=== PATIENT | female | born 1945 | race Caucasian/White ===

== ENCOUNTER 2021-01-12 13:45 | Outpatient (REF) | payer OTHER, SELFPAY | END 2021-01-12 13:46 | disposition home or self-care (01) | LOC: HO.MANLNP 13:45 | PROVIDERS: PCP Internal Medicine; Visit Provider Internal Medicine | DX: R30.9 Painful micturition, unspecified (principal) | CPT/HCPCS: 87086; 87088; 87186 ==

== ENCOUNTER 2021-06-20 11:43 | Outpatient (REF) | payer MEDICARE, SELFPAY | END 2021-06-20 11:44 | disposition home or self-care (01) | LOC: HO.MANLDS 11:43 | PROVIDERS: PCP Internal Medicine; Visit Provider Physician Assistant | DX: R30.9 Painful micturition, unspecified (principal) | CPT/HCPCS: 87086 ==

== ENCOUNTER 2023-05-09 14:30 | Outpatient (REF) | payer MEDICARE, SELFPAY ==
[2023-05-09 18:07] LABS: Appearance Urine Clear; Color Urine Yellow; Glucose Urine UA Negative (Negative); Leukocyte Esterase Urine Trace (Negative); Nitrite Urine Negative (Negative); PH 7.5 (5.0-9.0); UMIC TRIGGER UACC YES; Urine Blood Negative (Negative); Urine Ketones Negative (Negative); Urine Protein Negative (Neg-Trace)
[2023-05-09 18:13] LABS: Bacteria Urine None Seen (None Seen); Hyaline Casts Urine 0-2 /LPF (0-2); RBC Urine 0-2 /HPF (0-2); Squamous Epithelial Cell Urine 0-2 /HPF (0-2); WBC Urine 0-5 /HPF (0-5)
== END 2023-05-09 14:31 | disposition home or self-care (01) ==
LOC: HO.MANLNP 14:30
PROVIDERS: Visit Provider Physician Assistant
DX: R30.9 Painful micturition, unspecified (principal)
CPT/HCPCS: 81001

== ENCOUNTER 2025-02-13 10:39 | Outpatient (REF) | payer MEDICARE, SELFPAY ==
--- OUTSIDE RECORDS SUMMARY | 2025-02-13 12:12 | XMS_ITS | Continuity of Care Document ---
Author Organization [facility], [facility] Address [address] [place] [address] Assessment No assessment recorded. Plan of Treatment Reminders Order Date Submit Date Provider Last Modified By Organization Details Last Modified Time Details Appointments ANNUAL EXAM 2024 10:00A M DR MARTINS Not available Not available Not available ANNUAL EXAM 2025 09:30A M DR MARTINS Not available Not available Not available Lab urinalysi s complete, reflex culture 2024 025 [facility], [address] [place] [address], [id number], 02/13/2025 10:32:21 CMP, serum or plasma 2024 025 [facility], [address] [place] [address], [id number], 02/13/2025 10:32:21 lipid panel, blood 2024 025 [facility], [address] [place] [address], [id number], 02/13/2025 10:32:21 CBC w/ auto diff 2024 025 [facility], [address] [place] [address], [id number], 02/13/2025 10:32:21 Referral None recorded. Procedures None recorded. Surgeries None recorded. Imaging None recorded. Medication Orders estradiol 0.01% (0.1 mg/gram) vaginal cream 2024 025 [id number], [address], [place], [phone], 02/13/2025 10:31:03 nitrofura ntoin monohydra te/macroc rystals 100 mg capsule 2024 [facility] #[id number], [address], [place], [phone], 02/13/2025 10:32:09 Patient TargetsNo targets recorded. Patient Instructions Encounter Date Encounter Id Patient Instructions Last Modified By Organization Details Last Modified Time 02/13/2025 [id number] Bladder Pain Syndrome (BPS): Care Instructions Not available 02/13/2025 10:30:58 transient ischemic attack: care instructions Not available 02/13/2025 10:30:58 Reason for Referral None Reported. Problems Name Problem SNOMED Code Status Onset Date Resolution Date Notes Provider Name and Address Organization Details Recorded Time Osteoarthr itis 518466100 Active 2017 Caridad marshall [facility] 5 11:52:45 Adenomatou s polyp of colon 151602849 Active 2017 Caridad marshall [facility] 5 11:52:45 Osteopenia 208390534 Active 2017 Caridad marshall [facility] 5 11:52:45 Hyperchole sterolemia 41700688 Active 2017 Caridad marshall [facility] 5 11:52:45 Family history of ischemic heart disease 614709660 Active 2018 Caridad marshall [facility] 5 11:52:45 Tachycardi a 4007231 Active 2018 Caridad marshall [facility] 5 11:52:45 Gastroesop hageal reflux disease 685880512 Active 2018 Not Available [facility] 1 12:52:36 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 5 11:52:45 Arthritis of first carpometac arpal joint of right hand 4145668525021 100 Active 2021 Caridad Stephens null, [facility] 5 11:52:45 Dizziness 767514992 Active 2021 Caridad Stephens null, [facility] 5 11:52:57 Serous otitis media 67629376 Active 2021 Caridad Stephens null, [facility] 5 11:52:57 Neck pain 00493453 Active 2021 Caridad Stephens null, [facility] 5 11:52:57 Benign paroxysmal positional vertigo 640601961 Active 2021 Caridad Stephens null, [facility] 5 11:52:57 Cervical arthritis 137776778 Active 2021 Caridad Stephens null, [facility] 5 11:52:45 Contact dermatitis 60935488 Active 2021 Caridad Stephens null, [facility] 5 11:52:57 Transient cerebral ischemia 993252764 Active 2021 Caridad Stephens null, [facility] 5 11:52:45 Chronic interstiti al cystitis 963573827 Active 2022 Caridad Stephens null, [facility] 5 11:52:45 Atrophic vaginitis 63686656 Active 2022 Caridad Stephens null, [facility] 5 11:52:45 Dysuria 33083932 Active 2022 Caridad Stephens null, [facility] 5 11:52:57 Onychomyco sis 202828386 Active 2022 Caridad Stephens null, [facility] 5 11:52:57 Palpitatio ns 24406883 Active 2022 Caridad Stephens rolando 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 5 11:52:57 Actinic keratosis 573819906 Active 2023 Caridad marshall [facility] 5 11:52:45 Problem Notes None recorded. Medical Equipment None Reported. Allergies Allergen ID Allergen Name Allergen Category Reaction Reaction Severity Criticality Documentation Date Start Date Code Code System Note Provider Name and Address Organization Details Recorded Time 2708 Substance with sulfonami de structure and antibacte rial mechanism of action (substanc e) medicatio n Not available Not available Not available 11/26/2018 61775 8003 SNOMED Maria Esther marshall [facility] 9 09:35:34 Medications Name Sig Start Date Stop Date Status Note LastModified by Organization Details LastModified Time amoxicillin 500 mg capsule TAKE 1 CAPSULE BY MOUTH THREE TIMES DAILY UNTIL GONE 12/07 completed Not Available Not Available Not Available prednisone 10 mg tablet 40 mg x 2 days30 mg x 2 days 20 mg x 2 days10 mg x 2 days 06/05 completed Not Available Not Available Not Available azithromyci n 250 mg tablet TAKE 2 TABLETS BY MOUTH ONCE ON DAY 1 THEN 1 TABLET BY MOUTH ONCE DAILY FOR 4 DAYS 12/07 completed Not Available Not Available Not Available meclizine 12.5 mg tablet TAKE 1 TABLET BY MOUTH THREE TIMES DAILY NEEDED 12/07 completed Not Available Not Available Not Available ciprofloxac in 250 mg tablet TAKE 1 TABLET BY MOUTH TWICE DAILY FOR 7 DAYS 05/03 completed Not Available Not Available Not Available amoxicillin 500 mg tablet TAKE 4 TABLETS BY MOUTH 1 HOUR PRIOR TO DENTAL PROCEDURE active Not Available Not Available No t Available terbinafine HCl 250 mg tablet TAKE 1 TABLET BY MOUTH EVERY DAY 12/07 completed Not Available Not Available Not Available tamsulosin 0.4 mg capsule TAKE 1 CAPSULE BY MOUTH EVERY DAY FOR 10 DAYS 03/05 completed Not Available Not Available Not Available oseltamivir 75 mg capsule 11/26 completed Not Available Not Available Not Available prednisone 50 mg tablet 06/05 completed Not Available Not Available Not Available omeprazole 20 mg capsule,del ayed release Take 1 capsule every day by oral route. active Not Available Not Available No t Available montelukast 10 mg tablet TAKE 1 TABLET BY MOUTH EVERY DAY 06/05 completed Not Available Not Available Not Available metoprolol succinate ER 25 mg tablet,exte nded release 24 hr TAKE 1 TABLET BY MOUTH EVERY DAY active Not Available Not Available No t Available ibuprofen 600 mg tablet 04/30 completed Not Available Not Available Not Available lovastatin 20 mg tablet TAKE 1 TABLET BY MOUTH EVERY DAY active Not Available Not Available No t Available estradiol 0.01% (0.1 mg/gram) vaginal cream Insert 1 applicato rful twice a week by vaginal route for 30 days. 2024 active Not Available Not Available Not Avai lable methylpredn isolone 4 mg tablets in a dose pack FOLLOW PACKAGE DIRECTION S FOR 6 DAYS 12/07 completed Not Available Not Available Not Available morphine 15 mg immediate release tablet 03/05 completed Not Available Not Available Not Available fluticasone propionate 50 mcg/actuati on nasal spray,suspe nsion INSTILL 1 SPRAY INTO EACH NOSTRIL EVERY DAY active PRN Not Available Not Available No t Available azithromyci n 500 mg tablet 11/26 completed Not Available Not Available Not Available nitrofurant oin monohydrate /macrocryst als 100 mg capsule Take 1 capsule every 12 hours by oral route for 7 days. 2024 active Not Available Not Available Not Avai lable multivitami n active Not Available Not Available Not Available sodium fluoride 1.1 %-potassium nitrate 5 % dental paste active Not Available Not Available Not Available diclofenac 1 % topical gel APPLY 2 GRAMS TOPICALLY FOUR TIMES DAILY active Not Available Not Available No t Available Vitals Date Recorded Body height Body mass index (BMI) Body weight Heart rate Oxygen saturation Oxygen saturation in Arterial blood by Pulse oximetry Systolic blood pressure Diastolic blood pressure Provider Name and Address Organization Details Last Updated DateTime 5 153.67 cm 25.2 kg/m2 20149.6 g 72 /min 98 % 98 % 120 mm[Hg] 80 mm[Hg] [facility] 5 09:59:58 Social History Question Answer Notes LastModified by Organizat ion Details LastModified Time Tobacco Smoking Status Never Smoker Maria Esther Rae null, [facility] 11/26/2018 09:36:00 What Is Your Level Of Alcohol Consumption? None Information not available 11/26/2018 What Is Your Level Of Caffeine Consumption? None Information not available 11/26/2018 What Was The Date Of Your Most Recent Tobacco Screening? 02/13/2025 Information not available 02/13/2025 Do You Or Have You Ever Used Any Other Forms Of Tobacco Or Nicotine? No [email or web address] Information not available 05/09/2023 Sex: Unknown Functional Status Question Answer Note LastModified by Organization D etails LastModified Time What is your exercise level? None Information not available 11/26/2018 Mental Status None recorded. Family History Nothing Reported. Medical History No medical history recorded. Gynecological HistoryNo gynecological history recorded. Obstetrics History GPAL:G 0 P 0 0 0 0 Immunizations Vaccine Type Date Status Note Provider Nam e and Address Organization Details Recorded Time COVID-19, mRNA, LNP-S, PF, 30 mcg/0.3 mL dose 1 completed Nayely Aviles [facility] 05/01/2022 12:06:19 Pneumococcal conjugate PCV 13 0 completed Nayely marshall [facility] 05/01/2022 12:07:42 Influenza, split virus, quadrivalent, preservative 0 completed Tammy marshall [facility] 08/24/2020 08:20:32 COVID-19, mRNA, LNP-S, PF, 30 mcg/0.3 mL dose 1 completed Maria Esther marshall [facility] 12/01/2020 13:43:07 COVID-19, mRNA, LNP-S, PF, 30 mcg/0.3 mL dose 1 completed Maria Esther marshall [facility] 12/21/2020 13:36:56 Tdap 0 completed Mauro Martins, DO [address] [place], [address], [facility] 01/12/2021 12:03:40 zoster recombinant 1 completed Mauro Martins DO [address] [place], [address], [facility] 01/12/2021 12:03:57 zoster recombinant 1 [facility] 01/25/2021 13:33:32 Past Encounters Encounter ID Performer Location Encounter Start Date Encounter Closed Date Diagnosis/Indication Diagnosis SNOMED-CT Code Diagnosis ICD10 Code Diagnosis Note [id number] Mauro Martins DO [facility] [address] [address] 02/13/2025 09:51:26 02/13/2025 10:56:20 Active or passive immunization 443178304 Z23 utd Adult heal th examination 412190486 Z00.00 doing very well overall despite losing her daughter she will be a long time recovering from this will need some laband no recent issues except occ BPV Atrophic vaginitis 71010 000 N95.2 Transient cerebral ischemia 425419071 G45.8 will need to chk Hypercholesterolemia 136 65389 E78.2 ok on the lovastatin will rechk in 1 yrg Chronic in terstitial cystitis 772790489 N30.11 Health Concerns Section Related Observation LastModified by Organization Detai ls LastModified Time None Recorded Concern Status LastModified by Organization Details LastModified Time None Recorded Payers Encounter Date Sequence Insurance Name Policy Number Policy Jordan Covered Member ID Jordan Member ID Guarantor Name 02/13/2025 1 [facility] [id number] Latesha Fowler [id number] Latesha Fowler Notes Date Note Type Note Provider Name a nd Address Organization Details Recorded Time 5 text/html Annual WellnessReported bypatient.Diet and Nutrition:healthy diet Fracture Risk:no history of fractures; no recent explained fracture; no sudden unexplained fractures; no previous musculoskeletal injuries Physical Activity:exercises on a regular basis; recent increase in physical activity; good physical condition Additional Lifestyle Factors:no tobacco use; no alcohol intake; stopped drinking alcohol Depression Risk:never feels sad, empty, or tearful; no loss of interest in activities; no significant changes in weight; no sleep disturbances or insomnia; no agitation; no loss of energy; no feelings of worthlessness or guilt; no thoughts of suicide; no history of depression; no history of mood disorders Hearing:no loss of hearing Vision:no vision problems here long discussion re event s of past month and her daughter passing from cerebrla hemorrhage Mauro Martins, DO [address], [place], [address], [facility] 02/13/2025 10:35:09 OBGyn Episode No OBEpisode recorded.
--- OUTSIDE RECORDS SUMMARY | 2025-02-13 12:12 | XMS_ITS | Data Portability ---
Author Organization [facility] Home Service Address [address] [place] [address] Assessment Encounter Date Assessment Date Assessment LastModified by Organization Details LastModified Time 07/10/2023 07/10/2023 Patient agreed and verbally consents to this audio and video Telehealth appt via a secure platform [email or web address] Not available 07/10/2023 09:31:58 12/07/2023 12/07/2023 [id number] [place] [id number] (SPECIAL EDUCATION CASE MANAGER) MDM MODERATE MUST MEET 2 OUT OF 3 ELEMENTS: PROBLEMS, DATA OR RISK ELEMENT 1: PROBLEMS ADDRESSED 1 OR MORE CHRONIC ILLNESS WITH EXACERBATION OR 2 OR MORE STABLE CHRONIC ILLNESSES OR 1 UNDIAGNOSED NEW PROBLEM OR 1 ACUTE ILLNESS W/SYMPTOMS OR 1 ACUTE COMPLICATED INJURY ELEMENT 2: DATA MUST MEET 1 OF 3 CATEGORIES CATEGORY 1: REVIEW OF PRIOR EXTERNAL NOTES, REVIEW OF RESULTS, ORDERING OF EACH TEST, ASSESSMENT REQUIRING INDEPENDENT HISTORIAN OR CATEGORY 2: INDEPENDENT INTERPRETATION OF TESTS BY ANOTHER PHYSICIAN OR SPECIALIST OR CATEGORY 3: DISCUSSION OF MGT OR TEST INTERPRETATION W/EXTERNAL PHYSICIAN OR SPECIALIST ELEMENT 3: RISK RISK OF COMPLICATIONS AND/OR MORBIDITY OR MORTALITY OF PATIENT MANAGEMENT PROVIDER MUST THOROUGHLY DOCUMENT EACH ELEMENT THAT IS COVERED Not available 12/07/2023 09:59:44 Plan of Treatment Reminders Order Date Submit Date Provider Last Modified By Organization Details Last Modified Time Details Appointments ANNUAL EXAM 2024 10:00A M DR MARTINS Not available Not available Not available ANNUAL EXAM 2025 09:30A M DR MARTINS Not available Not available Not available Lab urinalysi s complete, reflex culture 2024 0404 025 [facility], [address] [place] [address], [place], [address], 02/13/2025 10:32:21 CMP, serum or plasma 2024 025 [facility], [address] [place] [address], [place], [address], 02/13/2025 10:32:21 lipid panel, blood 2024 025 [facility], [address] [place] [address], [place], [address], 02/13/2025 10:32:21 CBC w/ auto diff 2024 025 [facility], [address] [place] [address], [address], 02/13/2025 10:32:21 factor V mutation, blood or tissue 2023 024 [facility], [address], [place], [address], 12/21/2023 09:40:51 protein S Ag, total, plasma 2023 024 [facility], [address], [place], [address], 12/19/2023 12:30:01 protein C Ag, total, plasma 2023 024 [facility], [address], [place], [address], 12/21/2023 14:50:57 lipid panel, blood 2022 023 [facility], [address], [place], [address], 06/07/2023 20:19:23 CMP, serum or plasma 2022 023 [facility], [address], [place], [address], 06/07/2023 22:57:49 CBC w/ auto diff 2022 023 [facility], [address], [place], [address], 06/07/2023 16:20:22 vitamin D, 25-hydrox y, total, serum 2022 023 [facility], [address], [place], [address], 06/08/2023 00:33:17 Referral dermatolo gist referral 2023 024 [facility], [address], [place], [address], 01/04/2024 15:17:53 Procedures None recorded. Surgeries None recorded. Imaging US, echocardi ogram 2022 023 [facility], [address] [place], [address], 08/08/2023 08:20:15 CT, heart, w/o contrast, w/ coronary calcium score 2022 023 [facility], [address] [place], [address], 06/15/2023 08:13:34 Medication Orders estradiol 0.01% (0.1 mg/gram) vaginal cream 2024 025 [id number], [address], [place], [id number], 02/13/2025 10:31:03 nitrofura ntoin monohydra te/macroc rystals 100 mg capsule 2024 025 [id number], [address], [place], [id number], 02/13/2025 10:32:09 terbinafi ne HCl 250 mg tablet 2022 023 [email or web address] Not available 12/07/2023 09:25:46 Patient TargetsNo targets recorded. Patient Instructions Encounter Date Encounter Id Patient Instructions Last Modified By Organization Details Last Modified Time 06/05/2023 [id number] toenail fungus: care instructions Not available 06/05/2023 10:06:57 12/07/2023 [id number] actinic keratosi s: care instructions Not available 12/07/2023 09:56:59 gastroesophageal reflux disease (GERD): care instructions Not available 12/07/2023 09:55:14 02/13/2025 [id number] Bladder Pain Syndrome (BPS): Care Instructions Not available 02/13/2025 10:30:58 transient ischem ic attack: care instructions Not available 02/13/2025 10:30:58 Reason for Referral Ctrs Referral for A ctinic keratosis Referring Physician: Mauro Martins, Internal Medicine, Encounter Date: 12/07/2023 Results Created Date Observation Date Name Description Value Unit Range Abnormal Flag Note LastModifiedBy Organization Detail LastModifiedTime 05/09/2005/09/2023 urina lysis , dipst ick Leukocytes Large Not Available [facility] [address] [place] [address] [address], [place], [address], 05/09/2023 14:14:21 05/09/20 23 05/09/2023 urina lysis , dipst ick Nitrite negati ve Not Available [facility] [address] [facility] [address], [place], [address], 05/09/2023 14:14:21 05/09/20 23 05/09/2023 urina lysis , dipst ick Urobilinogen 1 Not Available [facility] [address] [facility] [address], [place], [address], 05/09/2023 14:14:21 05/09/20 23 05/09/2023 urina lysis , dipst ick Protein Trace Not Available [facility] [address], [place], [address], 05/09/2023 14:14:21 05/09/20 23 05/09/2023 urina lysis , dipst ick pH 8.0 Not Available [facility] [address], [place], [address], 05/09/2023 14:14:21 05/09/20 23 05/09/2023 urina lysis , dipst ick Blood Negati ve Not Available [facility] [address], [place], [address], 05/09/2023 14:14:21 05/09/20 23 05/09/2023 urina lysis , dipst ick Specific [place] 1.010 Not Available [facility] [address], [place], [address], 05/09/2023 14:14:21 05/09/20 23 05/09/2023 urina lysis , dipst ick Ketone Negati ve Not Available [facility] [address], [place], [address], 05/09/2023 14:14:21 05/09/2005/09/2023 urina lysis , dipst ick Bilirubin Negati ve Not Available [facility] [address], [place], [address], 05/09/2023 14:14:21 05/09/20 23 05/09/2023 urina lysis , dipst ick Glucose Negati ve Not Available [facility] [address], [place], [address], 05/09/2023 14:14:21 05/09/2005/09/2023 urina lysis , dipst ick Appearance Clear Not Available [facility] [address], [place], [address], 05/09/2023 14:14:21 05/09/2005/0905/09/2023 urina lysis , dipst ick Color Pale Yellow Not Available [facility] [address], [place], [address], 05/09/2023 14:14:21 06/07/20 23 06/07/2023 US, bladd er No observ ation record ed. [facility] [address] [place], [address], 07/10/2023 09:26:37 06/26/20 23 06/25/2023 CT, heart , w/o contr ast, w/ coron cecile calci um score No observ ation record ed. [facility] [address] [place], [address], 07/10/2023 09:26:37 10/29/20 23 10/29/2023 US, echoc ardio gram No observ ation record ed. [facility] [address] [place], [address], 12/07/2023 09:42:53 Result Notes None recorded. Problems Name Problem SNOMED Code Status Onset Date Resolution Date Notes Provider Name and Address Organization Details Recorded Time Osteoarthr itis 590929105 Active 2017 Caridad marshall [facility] 5 11:52:45 Adenomatou s polyp of colon 105605388 Active 2017 Caridad marshall [facility] 5 11:52:45 Osteopenia 598100014 Active 2017 Caridad marshall [place] [facility] 5 11:52:45 Hyperchole sterolemia 29689279 Active 2017 Caridad marshall [facility] 5 11:52:45 Family history of ischemic heart disease 828041965 Active 2018 Caridad marshall [facility] 5 11:52:45 [facility]achycardi a 3855156 [facility] 11:52[facility] Gastroesop hageal reflux disease 175055059 Active 2018 Not Available [facility] 1 12:52:36 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 Active [facility] 11:52:45 Arthritis of first carpometac arpal joint of right hand 4740860550183 100 Active 2021 Caridad marshall [facility] 5 11:52:45 Dizziness 065295867 [facility] 11:52:57 Serous otitis media 97958427 Active [facility] 11:52:57 Neck pain 58358700 Active [facility] 11:52:57 Benign paroxysmal positional vertigo 841381877 Active 2021 [facility] 11:52:57 Cervical arthritis 842898484 Active 2021 [facility] 11:52:45 Contact dermatitis 46563751 Active [facility] 11:52:57 Transient cerebral ischemia 134785699 Active [facility] 11:52:45 Chronic interstiti al cystitis 837871994 Active 2022 Caridad marshall [facility] 5 11:52:45 Atrophic vaginitis 67565879 [facility] 20[facility] 11:52:45 Dysuria 50080169 Active 2022 Caridad marshall [facility] 5 11:52:57 Onychomyco sis 863777820 Active 2022 Caridad marshall [facility] 5 11:52:57 Palpitatio ns 88629424 Active 2022 Caridad marshall [facility] 5 11:52:45 Focal acral hyperkerat osis 022786481 Active 2023 Caridad marshall [facility] 5 11:52:57 Actinic keratosis 594048713 Active 2023 Caridad marshall [facility] 5 11:52:45 Problem Notes None recorded. Procedures Surgical History None recorded. Imaging Results Imaging Date Name Status LastModified by Organization Details LastModified Time 06/07/2023 US, bladder completed [facility] [address] [place], [address], 07/10/2023 09:26:37 06/25/2023 CT, heart, w/o contrast, w/ coronary calcium score completed [facility] [address] [place], [address], 07/10/2023 09:26:37 10/29/2023 US, echocardiogram completed [email or web address] [facility] [address] [place], [address], 12/07/2023 09:42:53 Procedure Notes None recorded. Medical Equipment None Reported. Allergies Allergen ID Allergen Name Allergen Category Reaction Reaction Severity Criticality Documentation Date Start Date Code Code System Note Provider Name and Address Organization Details Recorded Time 2708 Substance with sulfonami de structure and antibacte rial mechanism of action (substanc e) medicatio n Not available Not available Not available 11/26/2018 99118 8003 SNOMED Maria Esther marshall [facility] 9 09:35:34 Medications Name Sig Start [...] and Address Organization Details Last Updated DateTime 3 153.67 cm 27.1 kg/m2 83280.5 2 g 68.99 /min 96 % 96 % 120 mm[Hg] 74 mm[Hg] Maureen Bright [facility] 3 09:29:35 Date Recorded Body height Body mass index (BMI) Body weight Heart rate Oxygen saturation Oxygen saturation in Arterial blood by Pulse oximetry Systolic blood pressure Diastolic blood pressure Provider Name and Address Organization Details Last Updated DateTime 4 153.67 cm 25.4 kg/m2 16562.9 1 g 65 /min 98 % 98 % 117 mm[Hg] 67 mm[Hg] Iqra Mccoy [facility] 4 09:28:37 Date Recorded Body height Body mass index (BMI) Body weight Heart rate Oxygen saturation Oxygen saturation in Arterial blood by Pulse oximetry Systolic blood pressure Diastolic blood pressure Provider Name and Address Organization Details Last Updated DateTime 4 153.67 cm 25.2 kg/m2 23344.6 g 72 /min 96 % 96 % 116 mm[Hg] 68 mm[Hg] Erik Heaton [facility] 4 09:26:47 Date Recorded Body height Body mass index (BMI) Body weight Heart rate Oxygen saturation Oxygen saturation in Arterial blood by Pulse oximetry Systolic blood pressure Diastolic blood pressure Provider Name and Address Organization Details Last Updated DateTime 5 153.67 cm 25.2 kg/m2 23000.6 g 72 /min 98 % 98 % 120 mm[Hg] 80 mm[Hg] Maureen Jarrellmond [facility] 5 09:59:58 Social History Question Answer Notes LastModified by Organizat ion Details LastModified Time Tobacco Smoking Status Never Smoker Maria Esther marshall [facility] 11/26/2018 09:36:00 What Is Your Level Of Alcohol Consumption? None Information not available 11/26/2018 What Is Your Level Of Caffeine Consumption? None Information not available 11/26/2018 What Was The Date Of Your Most Recent Tobacco Screening? 02/13/2025 [email or web address] Information not available 02/13/2025 Do You Or Have You Ever Used Any Other Forms Of Tobacco Or Nicotine? No [email or web address] Information not available 05/09/2023 Sex: Unknown Functional [...] 30 mcg/0.3 mL dose 1 completed Nayely marshall [facility] 05/01/2022 12:06:19 Pneumococcal conjugate PCV 13 0 completed Nayely marshall [facility] 05/01/2022 12:07:42 Influenza, split virus, quadrivalent, preservative 0 completed Tammy marshall [facility] 08/24/2020 08:20:32 COVID-19, mRNA, LNP-S, PF, 30 mcg/0.3 mL dose 1 completed Maria Esther marshall [facility] 12/01/2020 13:43:07 COVID-19, mRNA, LNP-S, PF, 30 mcg/0.3 mL dose 1 completed Maria Esther marshall [facility] 12/21/2020 13:36:56 Tdap 0 completed Mauro Martins DO [address] [place], [address], [facility] 01/12/2021 12:03:40 zoster recombinant 1 completed Mauro Martins DO [address] [place], [address], [facility] 01/12/2021 12:03:57 zoster recombinant 1 completed Maria Esther marshall [facility] 01/25/2021 13:33:32 Past Encounters Encounter ID Performer Location Encounter Start Date Encounter Closed Date Diagnosis/Indication Diagnosis SNOMED-CT Code Diagnosis ICD10 Code Diagnosis Note [id number] Mauro Martins [facility] [address],[place] [address] 11/26/2018 09:26:14 11/26/2018 10:36:37 Adult health examination 395555194 Z00.00 doing very well overall Active or passive immunization 791102205 Z23 Osteopenia 814949901 M85 .9 [id number] Mauro Martins [address],[place] [address] 03/05/2019 12:04:17 03/05/2019 13:57:44 Kidney stone 97780709 N20.0 will have he r cont to stay well hydrated Hypercholesterolemia 136 02930 E78.00 ok on the lovastat but she needs to be better by eating Osteopenia 297604439 M85 .9 reviewed th bmd recently with good results Ventricula r premature beats 43765629 I49.3 pt will try to cut down dose of metoprolol and get back to me with update February CLARY Jara [facility] [address] [place] [address],[place] [address] 04/30/2019 13:43:27 04/30/2019 14:11:19 Acute urinary tract infection 309206458 N39.0 Hypercholesterolemia 136 95189 E78.00 Tachycardia 1634956 R00. 0 [id number] Mauro Martins [facility] [address] [facility],[place] [address] 09/12/2019 10:45:49 09/12/2019 12:00:49 Hypercholesterolemia 16570994 E78.00 ok on the lovastatin will rechk in 1 yrg Osteopenia 557833128 M85 .9 reviewed th bmd recently with good results Tachycardia 4685070 R00. 0 completely stable and is doing good with metoprolol [id number] CRISPIN CHAVEZ [facility] [address] [facility] [address] 05/03/2020 09:31:59 05/03/2020 09:58:24 Hammer toe 937399945 M20.42 the patient has a hammer toe of the left fifth pinky toe will refer to ortho to have it looked at and have some options given to her [id number] Mauro Martins DO [facility] [address] [facility],[place] [address] 06/16/2020 13:26:04 06/16/2020 14:15:59 Gastroesophageal reflux disease 468822122 K21.9 cont the prn prilosec Tachycardia 2744172 R00. 0 completely stable and is doing good with metoprolol Hypercholesterolemia 136 84513 E78.00 ok on the lovastatin will rechk in 1 yrg Bilateral osteoarthritis of finger of hands 0290826072 76431 M19.041 stable [id number] Mauro Martins DO [facility] [address] [facility] [address],[place] [address] 01/12/2021 11:44:39 01/12/2021 14:07:12 Hypercholesterolemia 89309840 E78.00 ok on the lovastatin will rechk in 1 yrg Gastroesop hageal reflux disease 619183382 K21.9 cont the prn prilosec Dysuria 72616538 R30.9 has 3+ leukocytes and blood Tachycardia 0310950 R00. 0 completely stable and is doing good with metoprolol Osteoarthritis 880818215 M19.90 hands are the most affected leo the right hand [id number] CRISPIN CHAVEZ [facility] [address] [facility] [address],[place] [address] 03/08/2021 10:17:43 03/08/2021 12:20:59 Swelling of lower leg 647955029 R22.42 will r/o DVT first, also see if possible sheriff's cyst as well if normal will work up for sciatica, osteo of the left knee/hip Pain of left calf 290265 4323 358078 M79.662 will fu with US results [id number] CRISPIN CHAVEZ [facility] [address] [facility],[place] [address] 06/20/2021 10:11:36 06/20/2021 10:48:12 Dysuria 86836161 R30.9 will fu with culture Acute urin cecile tract infection 249130637 N39.0 will fu with abx and send out culture Allergic rhinitis 585415 04 J30.9 will fu with regimen for flonase, allergy medication and garlic pills [id number] Mauro Martins DO [facility] [address] [facility],[place] [address] 05/03/2022 13:30:33 05/03/2022 14:20:09 Active or passive immunization 816853994 Z23 utd Adult heal th examination 088170737 Z00.00 doing very well overall Family his tory of ischemic heart disease 927381741 Z82.49 [id number] CRISPIN CHAVEZ [facility] [address] [facility],[place] [address] 05/12/2022 09:17:26 05/12/2022 14:23:57 Acute sinusitis 64292017 J01.01 will start on z-phillip for possible sinus infection Dizziness 151966767 R42 will start meclizine for dizziness PRN [id number] CRISPIN CHAVEZ [facility] [address] [facility] [address] 05/19/2022 13:58:37 05/19/2022 15:38:56 Dizziness 268552683 R42 will start meclizine for dizziness PRN Serous otitis media 8032 7007 H65.01 will start on montelukas t in the meantime Neck pain 96460080 M54.2 will fu with imaging head and neck [id number] CRISPIN CHAVEZ [facility] [address] [facility] [address] 05/31/2022 14:33:00 05/31/2022 16:22:14 Benign paroxysmal positional vertigo 616479406 H81.12 will fu with her chiropract or for the manuevers and will keep on the meclizine Cervical arthritis 89249 1000 M46.82 will fu with neck XR onlyCT was denied [id number] CRISPIN CHAVEZ [facility] [address] [facility],[place] [address] 07/11/2022 10:53:26 07/11/2022 11:15:07 Contact dermatitis 69709505 L23.7 start prednisone Dizziness 365129407 R42 will start meclizine for dizziness PRNhas since resolvedwi ll call if it occurs again [id number] CRISPIN CHAVEZ [facility] [address] [facility],[place] [address] 08/11/2022 15:13:13 08/11/2022 16:33:52 Transient cerebral ischemia 098818863 G45.8 will r/o TIA given symptoms [id number] CRISPIN CHAVEZ [facility] [address] [facility],[place] [address] 08/23/2022 09:44:35 08/23/2022 13:36:10 Renewal of prescription 069544983 Z76.0 will send in new refill Transient cerebral ischemia 815230395 G45.8 continue the work up with MRI, US carotid, and holter for 30 days [id number] CRISPIN CHAVEZ [facility] [address] [facility] [address] 05/09/2023 13:54:27 05/11/2023 09:13:04 Dysuria 59016783 R30.9 send out for culturef/u with US r/o any other condition. .. cystitis, kidney disease Cervical arthritis 24495 1000 M46.82 stable Chronic in terstitial cystitis 494899006 N30.11 agreed to US bladder for recurrent UTI's Atrophic vaginitis 12208 000 N95.2 will trial the estradiol cream [id number] Mauro Martins [facility] [address] [facility], [place] [address] 06/05/2023 09:23:05 06/05/2023 14:36:54 Active or passive immunization 668028041 Z23 utd[ Adult heal th examination 690129511 Z00.00 doing very well overallnot e she has had a lot of recent deaths in her family from cardiac illness Hypercholesterolemia 136 34870 E78.00 ok on the lovastatin will rechk in 1 yrg Osteopenia 975788859 M85 .9 reviewed th bmd recently with good results Onychomycosis 648649847 B35.1 [id number] JANN DODSON [facility] [address] [facility] [address] 07/10/2023 08:32:54 07/10/2023 15:56:03 Palpitations 06649228 R00.2 agreed to US Hypercholesterolemia 136 70128 E78.2 stable Family his tory of ischemic heart disease 762136245 Z82.49 stable [id number] Mauro Martins [facility] [address] [facility], [place] [address] 12/07/2023 09:17:32 12/07/2023 10:13:20 Cervical arthritis 871363038 M46.82 noted but is stable Hypercholesterolemia 136 73919 E78.2 ok on the lovastatin will rechk in 1 yrg Palpitations 73896169 R0 0.2 quiet Gastroesop hageal reflux disease 465767171 K21.9 cont the prn prilosec and eat more slowly Transient cerebral ischemia 787565514 G45.8 will need to chk Actinic keratosis 750131 007 L57.0 needs derm [id number] Mauro Martins [facility] [address] [facility],[place] [address] 06/13/2024 09:19:07 06/13/2024 15:37:16 Depression screening 004428085 Z13.31 Active or passive immunization 505433784 Z23 utd[ Adult heal th examination 731262464 Z00.00 doing very well overalland no recent issues except occ BPV [id number] DO [facility] [address] [facility] [address],[place] [address] 02/13/2025 09:51:26 02/13/2025 10:56:20 Active or passive immunization 126373491 Z23 utd Adult heal th examination 288464500 Z00.00 doing very well overall despite losing her daughter she will be a long time recovering from this will need some laband no recent issues except occ BPV Atrophic vaginitis 57923 000 N95.2 Transient cerebral ischemia 740686428 G45.8 will need to chk Hypercholesterolemia 136 94283 E78.2 ok on the lovastatin will rechk in 1 yrg Chronic in terstitial cystitis 121201506 N30.11 Health Concerns Section Related Observation LastModified by Organization Detai ls LastModified Time None Recorded Concern Status LastModified by Organization Details LastModified Time None Recorded Advance Directives Directive None Recorded Payers Encounter Date Sequence Insurance Name Policy Number Policy Jordan Covered Member ID Jordan Member ID Guarantor Name 06/05/2023 1 [facility] [id number] 4 Latesha Fowler [id number] Latesha Fowler 07/10/2023 1 [facility] [id number] 4 Latesha Fowler [id number] Latesha Fowler 12/07/2023 1 [facility] [id number] 4 Latesha Fowler [id number] Latesha Fowler 06/13/2024 1 [facility] [id number] 4 Latesha Fowler [id number] Latesha Fowler 02/13/2025 1 [facility] [id number] 4 Latesha Fowler [id number] Latesha Fowler Notes Date Note Type Note Provider Name and Address Organization Details Recorded Time 06/05/20 23 text/htm l Annual WellnessReported bypatient.Diet and Nutrition:healthy diet Fracture [...] Hearing:no loss of hearing Vision:no vision problems feeling well no major isssues and is not doing too badlyno cp nosobdenies any issues Mauro Martins DO [address] [place], [address], [facility] 06/05/2023 10:07:03 07/10/20 23 text/htm l CT score results tele-med phone callpatient consents to phone call discussed BW results which look really good, wnl discussed possible side effects with the lovastatinwill have her d/c for a week and see if it improves if it does will just change to an alt in the same class Calcium score is 375discussed continuing dietary and lifestyle changesdown 20 pounds agreed to echo as well for evaluation of her heart functioning CRISPIN CHAVEZ [address] [place], [phone], [facility] 07/10/2023 09:39:35 12/07/19 24 text/htm l here for rech and is doing ok overallvertigo is more acute with sudden movementsgranddaughter and 2 sisters with dvt hxalso gerd is good some belching Mauro Martins DO [address] [place], [phone], [facility] 12/07/2023 10:03:27 06/13/20 24 text/htm l Annual WellnessReported bypatient.Diet and Nutrition:healthy diet Fracture [...] Hearing:no loss of hearing Vision:no vision problems Mauro Martins DO [address] [place] [address], [phone], [facility] 06/13/2024 10:05:11 02/14/20 25 text/htm l Annual WellnessReported bypatient.Diet and Nutrition:healthy diet Fracture [...] her daughter passing from cerebrla hemorrhage Mauro Martins DO [address] [place] [address], [phone], [facility] 02/13/2025 10:35:09 OBGyn Episode No OBEpisode recorded.
[2025-02-13 13:36] LABS: MANUAL DIFF FLAG NO
[2025-02-13 13:43] LABS: Basophils Absolute Auto 0.1 X10*3/uL (0.0-0.2); Basophils Percent Auto 0.7 % (0-2); Eosinophils Absolute Auto 0.2 X10*3/uL (0.0-0.4); Eosinophils Percent Auto 1.9 % (0-4); Hematocrit 42.2 % (37.0-47.0); Hemoglobin 13.9 g/dl (12.0-16.0); Imm Gran Abs Auto 0.05 X10*3/uL (0.00-0.03); Imm Gran Pct Auto 0.6 % (0.0-0.4); Lymphocytes Absolute Auto 2.2 X10*3/uL (1.2-4.9); Lymphocytes Percent Auto 24.9 % (20-40); Mean Corpuscular HGB Conc 32.9 g/dl (31.0-35.0); Mean Corpuscular Hemoglobin 28.9 pg (27.0-33.0); Mean Corpuscular Volume 87.7 fL (80.0-98.0); Mean Platelet Volume 10.2 fL (9.4-12.3); Monocytes Absolute Auto 0.6 X10*3/uL (0.1-1.2); Monocytes Percent Auto 7.1 % (2-11); Neutrophils Absolute Auto 5.8 x10*3/uL (2.0-8.3); Neutrophils Percent Auto 64.8 % (45-73); Platelet Count 289 X10*3/uL (160-400); Red Blood Count 4.81 X10*6/uL (4.20-5.50); Red Cell Distribution Width 14.4 % (11.0-16.0); White Blood Count 8.9 X10*3/uL (4.8-10.8)
[2025-02-13 13:49] LABS: Appearance Urine Cloudy; Color Urine Yellow; Glucose Urine UA Negative (Negative); Leukocyte Esterase Urine Large (3+) (Negative); Nitrite Urine Negative (Negative); PH 7.5 (5.0-9.0); UMIC TRIGGER UACC YES; Urine Blood Trace (Negative); Urine Ketones Negative (Negative); Urine Protein Trace mg/dL (Neg-Trace)
[2025-02-13 13:52] LABS: Bacteria Urine 4+ (None Seen); Hyaline Casts Urine 0-2 /LPF (0-2); RBC Urine 0-2 /HPF (0-2); Squamous Epithelial Cell Urine 0-2 /HPF (0-2); UACC Culture Trigger YES; WBC Urine >50 /HPF (0-5)
[2025-02-13 14:57] LABS: Alanine Aminotransferase 25 U/L (0-31); Albumin Level 4.2 g/dL (3.5-5.0); Anion Gap 12 (12-20); Aspartate Amino Transferase 27 U/L (5-31); Bilirubin Total 0.8 mg/dL (0.0-1.0); Blood Urea Nitrogen 12 mg/dL (9-16); Calcium 9.7 mg/dL (8.4-10.2); Carbon Dioxide 26 mmol/L (22-29); Chloride 108 mmol/L (96-108); Cholesterol 217 mg/dL (<200); Estimated Glomerular Filt Rate > 60; Glucose Random 94 mg/dL (60-115); HDL Cholesterol 61 mg/dL (>40); LDL Cholesterol Calculated 125 mg/dL (<100); Sodium 142 mmol/L (135-145); Total Protein 6.8 g/dL (6.5-8.0); Triglycerides 158 mg/dL (<150)
[2025-02-13 15:26] LABS: Alkaline Phosphatase 89 U/L (39-117)
== END 2025-02-13 10:40 | disposition home or self-care (01) ==
LOC: HO.MANLDS 10:39
PROVIDERS: Visit Provider Internal Medicine
DX: E78.2 Mixed hyperlipidemia (principal); N30.11 Interstitial cystitis (chronic) with hematuria
CPT/HCPCS: 36415; 80053; 80061; 81001; 85025; 87086; 87088; 87186